=== PATIENT | male | born 1980 | race Caucasian/White ===

== ENCOUNTER → 2017-08-31 | Outpatient (CLI) | payer OTHER ==
[~2017-08-31] MED LIST: GADOBUTROL 10 ML VIAL IVP ONE
== END ==
LOC: FIMAGING 14:46
PROVIDERS: ATTEND Internal Medicine
DX: G93.89 Other specified disorders of brain (principal); Z85.841 Personal history of malignant neoplasm of brain
CPT/HCPCS: 70553; A9585